=== PATIENT | male | born 1990 | race Caucasian/White ===

== ENCOUNTER → 2016-05-30 | Outpatient (REF) ==
[2016-05-30 21:25] LABS: CRYSTALS, BODY FLUID NONE SEEN (NONE SEEN)
[2016-05-30 21:41] LABS: HCT SOURCE OTHER; SYNOVIAL FLUID COLOR YELLOW (YELLOW); WBC ADVIA BF 7.33; WBC CALC. BF 7330 cells/uL (0-20)
[2016-05-30 21:42] LABS: BF DIFF IF INDICATED? YES (NO); RBC ADVIA BF 0; RBC CALC. BF < 10000 (< 10mm3 cells/uL)
[2016-05-30 22:27] LABS: CC BF DIFF EXAM CYTOCENTRIFUGE
== END ==
LOC: M LAB REF 17:08
DX: Z01.89 Encounter for other specified special examinations (principal)

== ENCOUNTER → 2016-06-01 | Outpatient (CLI) | payer OTHER ==
[~2016-06-01] MED LIST: LIDOCAINE 1% MDV 20ML VIAL As Ordered ONE
[2016-06-01 14:24] LABS: CRYSTALS, BODY FLUID NONE SEEN (NONE SEEN)
[2016-06-01 15:42] LABS: RBC ADVIA BF 0.02; RBC CALC. BF 20000 (< 10mm3 cells/uL); WBC CALC. BF 14000 cells/uL (0-20)
[2016-06-01 15:43] LABS: BF DIFF IF INDICATED? YES (NO); SYNOVIAL FLUID COLOR ORANGE (YELLOW)
[2016-06-01 18:03] LABS: CC BF DIFF EXAM UNSPUN
--- NOTE | 2016-06-01 19:03 | REP ---
ULTRASOUND GUIDED RIGHT POSTERIOR KNEE FLUID DRAINAGE: The procedure was performed under the direct supervision of Dr. Back. The posterior knee fluid collection was localized using ultrasound guidance. The skin was prepped and draped in a sterile fashion. 1% Lidocaine was used as a local anesthetic. Using fluoroscopic guidance a #5 Azeri Skater catheter was inserted using trocar technique. 35 mL of red tinged fluid was with withdrawn and sent to the lab. The patient tolerated the procedure well and there were no immediate complications. After the appropriate amount of monitored convalescence. The patient tolerated the procedure well and there were no immediate complications. After the appropriate amount of monitored convalescence the patient was discharged from the department. Reviewed by SAMANTHA Caldwell 06/04/2016 05:14 PEdited and Signed by Eldon Back MD 06/04/2016 05:33 P
[2016-06-01 21:07] LABS: HCT SOURCE RT KNEE
== END ==
LOC: M RADPRO 12:31
DX: M25.461 Effusion, right knee (principal); M25.561 Pain in right knee; F17.200 Nicotine dependence, unspecified, uncomplicated

== ENCOUNTER 2016-06-04 19:10 | Emergency (ER) | payer OTHER ==
[2016-06-04] MEDS ORDERED: NORCO 5/325MG TABLET (BULK) As Ordered ONE (20:17)
--- NOTE | 2016-06-04 20:29 | EDDOCDS ---
Nurse's Notes [facility] Name: Audi Vaz Age: 25 yrs Sex: Male : 1990 Arrival Date: 06/04/2016 Time: 19:10 Bed TR7 Private MD: NEJUANA KIMBROUGH Diagnosis: Effusion, right knee Presentation: 06/04 19:22 Presenting complaint: Patient states: that approx 1 week ago his R calf and ankle ms18 started swelling. Pt states that he was seen at [place], referred to Ortho at [place] and then sent to [facility] to have fluid removed from his knee. Pt states that the swelling has gotten worse. The patients lower extremity has obvious swelling present on examination. Adult Sepsis Screening: The patient does not have new or worsening altered mentation. Patient's respiratory rate is less than 22. Systolic blood pressure is greater than 100. Patient has a qSOFA score of 0- Negative Sepsis Screen. Suicide/Homicide risk assessment- the patient denies having any suicidal and/or homicidal ideations and does not present with any other emotional, behavioral or mental health complaints. 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 Transition of care: patient was not received from another setting of care. 19:22 Acuity: SARY Level 3 ms18 19:22 Method Of Arrival: Walkin/Carried/Asstd ms18 Triage Assessment: 19:26 General: Appears in no apparent distress, comfortable, Behavior is appropriate for age, ms18 cooperative. Pain: Location: right ankle and right calf Pain currently is 8 out of 10 on a pain scale. HIV screening NA for this visit Offered previously. Neurological: Level of Consciousness is awake, alert, obeys commands, Oriented to person, place, time. Respiratory: No deficits noted. Derm: Skin is pink, warm & dry. Musculoskeletal: Capillary refill < 3 seconds No deformity noted Reports pain in right ankle and right calf. Historical: - Allergies: no known allergies; - Home Meds: 1. none - PMHx: none; - PSHx: none; - Social history: Smoking status: Patient uses tobacco products, current every day smoker. No barriers to communication noted, The patient speaks fluent Yakut. - Family history: Not pertinent. - : The pt / caregiver states he / she is not on anticoagulants. Home medication list is obtained from the patient. - Exposure Risk Screening:: None identified. Screenin:26 Screening information is obtained from the patient. Fall risk: No risks identified. pml Assistance ADL's: requires no assistance with activities of daily living. Abuse/DV Screen: The patient / caregiver reports he/she is: not in a situation that causes fear, pain or injury. Nutritional screening: No deficits noted. Advance Directives: Currently, there is no health care proxy. home support is adequate. Assessment: 20:26 General: Appears in no apparent distress, Behavior is appropriate for age, cooperative. pml Pain: Location: right ankle Pain currently is 8 out of 10 on a pain scale. Neurological: Level of Consciousness is awake, alert, Oriented to person, place, time. Cardiovascular: Capillary refill < 3 seconds. Respiratory: Airway is patent Respiratory effort is even, unlabored. GI: Abdomen is flat, non- distended. Derm: Skin is pink, warm & dry. Swollen area noted on right calf and right ankle. Musculoskeletal: Circulation, motion, and sensation intact Capillary refill < 3 seconds Signs and Symptoms of Compartment Syndrome: no signs of compartment syndrome. Vital Signs: 19:12 BP 151 / 91; Pulse 93; Resp 18 S; Temp 97.2(O); Pulse Ox 97% on R/A; Weight 72.57 kg dd6 (R); Height 5 ft. 8 in. (172.72 cm) (R); 19:12 Body Mass Index 24.33 (72.57 kg, 172.72 cm) dd6 Vitals: 19:12 Log In Time: June 04, 2016 at 19:00. dd6 ED Course: 19:11 Patient visited by Devyn Ramsey PCA. dd6 19:11 [facility]. dd6 19:11 Patient moved to Waiting dd6 19:12 Patient moved to Pre RCE dd6 19:26 Triage Initiated ms18 20:01 Patient moved to Triage 3 jmb 20:02 Basilio Foley PA is PHCP. mo1 20:02 Luc Samuels DO is Attending Physician. mo1 20:15 Patient visited by Basilio Foley PA. mo1 20:23 Chang Douglass is Referral Physician. mo1 20:26 Patient moved to TR7 jmb 20:26 The patient / caregiver is instructed regarding the plan of care and ED course. Patient pml has correct armband on for positive identification. Bed in low position. Call light in reach. 20:26 No IV's were initiated during this patient's visit. No procedures done that require pml assistance. Administered Medications: 20:26 Drug: HYDROcodone-acetaminophen 4 pack- 1 packets [hydrocodone 5 mg-acetaminophen 325 pml mg tablet (1 tabs)] {Co-Signature: raegan (Devan Bain RN).} Route: PO; 20:28 Follow up: Response: Med's dispensed home pml Order Results: There are currently no results for this order. Outcome: 20:23 Discharge ordered by Provider. mo1 20:26 Discharge Assessment: Patient awake, alert and oriented x 3. No cognitive and/or pml functional deficits noted. Patient verbalized understanding of disposition instructions. patient administered narcotics - no. The following High Risk Discharge criteria are identified: None. Discharged to home ambulatory, with significant other. Condition: good Condition: stable. Discharge instructions given to patient, Instructed on discharge instructions, follow up and referral plans. medication usage, no driving heavy equipment, Demonstrated understanding of instructions, medications, Pt was receptive of discharge instructions/ teaching. Prescriptions given X 1. No special radiology studies were completed. Property sent home with patient. 20:28 Patient left the ED. pml Signatures: Devyn Ramsey, NAIL FEEDER NAIL FEEDER dd6 Jennifer Fitzpatrick RN RN pml Basilio Foley PA PA mo1 Devan Bain RN RN Nereyda Reeves RN RN ms18 Devan carlin MTDD
--- NOTE | 2016-06-04 20:29 | EDDOCDS ---
Physician Documentation [facility] Name: Audi Vaz Age: 25 yrs Sex: Male : 1990 Arrival Date: 06/04/2016 Time: 19:10 Bed TR7 Private MD: NDJUANA KIMBROUGH Disposition: 06/04/16 20:23 Discharged to Home/Self Care. Impression: Effusion, right knee. - Condition is Stable. - Discharge Instructions: Knee Effusion, Knee Arthrocentesis. - Prescriptions for [place] 5- 325 mg Oral Tablet - take 1 tablet by ORAL route every 6 hours As needed MDD: 4 tabs; 20 tablet. - Medication Reconciliation, Local Pharmacy Hours form. - Follow up: Chang Douglass; When: Call to arrange an appointment; Reason: Recheck today's complaints, Continuance of care. - Problem is new. - Symptoms are unchanged. Historical: - Allergies: no known allergies; - Home Meds: 1. none - PMHx: none; - PSHx: none; - Social history: Smoking status: Patient uses tobacco products, current every day smoker. No barriers to communication noted, The patient speaks fluent Polish. - Family history: Not pertinent. - : The pt / caregiver states he / she is not on anticoagulants. Home medication list is obtained from the patient. - Exposure Risk Screening:: None identified. Vital Signs: 06/04 19:12 BP 151 / 91; Pulse 93; Resp 18 S; Temp 97.2(O); Pulse Ox 97% on R/A; Weight 72.57 kg / dd6 159.99 lbs (R); Height 5 ft. 8 in. (172.72 cm) (R); 19:12 Body Mass Index 24.33 (72.57 kg, 172.72 cm) dd6 MDM: 20:15 HYDROcodone-acetaminophen 4 pack- 5 mg-325 mg 1 packets PO Per package directions; mo1 Dispense with patient. 1 po q4h prn for pain ordered. Administered Medications: 20:26 Drug: HYDROcodone-acetaminophen 4 pack- 1 packets [hydrocodone 5 mg-acetaminophen 325 pml mg tablet (1 tabs)] {Co-Signature: raegan (Devan Bain RN).} Route: PO; 20:28 Follow up: Response: Med's dispensed home pml Signatures: Jennifer Fitzpatrick,RN RN pml Basilio Foley PA PA mo1 Nereyda Adame RN RN ms18 Devan Bain RN jmb MTDD
--- NOTE | 2016-06-06 21:30 | EDDOCDS ---
Physician Documentation [facility] Name: Audi Vaz Age: 25 yrs Sex: Male : 1990 Arrival Date: 06/04/2016 Time: 19:10 Bed TR7 Private MD: NCJUANA KIMBROUGH Disposition: 06/04/16 20:23 Discharged to Home/Self Care. Impression: Effusion, right knee. - Condition is Stable. - Discharge Instructions: Knee Effusion, Knee Arthrocentesis. - Prescriptions for [place] 5- 325 mg Oral Tablet - take 1 tablet by ORAL route every 6 hours As needed MDD: 4 tabs; 20 tablet. - Medication Reconciliation, Local Pharmacy Hours form. - Follow up: Chang Douglass; When: Call to arrange an appointment; Reason: Recheck today's complaints, Continuance of care. - Problem is new. - Symptoms are unchanged. Historical: - Allergies: no known allergies; - Home Meds: 1. none - PMHx: none; - PSHx: none; - Social history: Smoking status: Patient uses tobacco products, current every day smoker. No barriers to communication noted, The patient speaks fluent Ecuadorean. - Family history: Not pertinent. - : The pt / caregiver states he / she is not on anticoagulants. Home medication list is obtained from the patient. - Exposure Risk Screening:: None identified. Vital Signs: 06/04 19:12 BP 151 / 91; Pulse 93; Resp 18 S; Temp 97.2(O); Pulse Ox 97% on R/A; Weight 72.57 kg / dd6 159.99 lbs (R); Height 5 ft. 8 in. (172.72 cm) (R); 19:12 Body Mass Index 24.33 (72.57 kg, 172.72 cm) dd6 MDM: 20:15 HYDROcodone-acetaminophen 4 pack- 5 mg-325 mg 1 packets PO Per package directions; mo1 Dispense with patient. 1 po q4h prn for pain ordered. 22:14 [facility] Payment Agreement was scanned into [employer] and attached to record. [facility] 22:14 Financial registration complete. b 06/05 11:49 T-Sheet-- Draft Copy was scanned into [employer] and attached to record. gb Administered Medications: 06/04 20:26 Drug: HYDROcodone-acetaminophen 4 pack- 1 packets [hydrocodone 5 mg-acetaminophen 325 pml mg tablet (1 tabs)] {Co-Signature: raegan (Devan Bain RN).} Route: PO; 20:28 Follow up: Response: Med's dispensed home pml Signatures: Patti Teran, Jadon Reg gb Jennifer Fitzpatrick RN RN pml Basilio Foley PA PA mo1 Nereyda Adame RN RN ms18 Bernarda Wong RN The chart was reviewed and I authenticate all verbal orders and agree with the evaluation and treatment provided.Attachments: 22:14 [facility] Payment Agreement gjb 06/05 11:49 T-Sheet-- Draft Copy gb Chart Complete MTDD
--- NOTE | 2016-06-06 21:30 | EDDOCDS ---
Physician Documentation [facility] Name: Audi Vaz Age: 25 yrs Sex: Male : 1990 Arrival Date: 06/04/2016 Time: 19:10 Bed TR7 Private MD: NMJUANA KIMBROUGH Disposition: 06/04/16 20:23 Discharged to Home/Self Care. Impression: Effusion, right knee. - Condition is Stable. - Discharge Instructions: Knee Effusion, Knee Arthrocentesis. - Prescriptions for [place] 5- 325 mg Oral Tablet - take 1 tablet by ORAL route every 6 hours As needed MDD: 4 tabs; 20 tablet. - Medication Reconciliation, Local Pharmacy Hours form. - Follow up: Chang Douglass; When: Call to arrange an appointment; Reason: Recheck today's complaints, Continuance of care. - Problem is new. - Symptoms are unchanged. Historical: - Allergies: no known allergies; - Home Meds: 1. none - PMHx: none; - PSHx: none; - Social history: Smoking status: Patient uses tobacco products, current every day smoker. No barriers to communication noted, The patient speaks fluent Belizean. - Family history: Not pertinent. - : The pt / caregiver states he / she is not on anticoagulants. Home medication list is obtained from the patient. - Exposure Risk Screening:: None identified. Vital Signs: 06/04 19:12 BP 151 / 91; Pulse 93; Resp 18 S; Temp 97.2(O); Pulse Ox 97% on R/A; Weight 72.57 kg / dd6 159.99 lbs (R); Height 5 ft. 8 in. (172.72 cm) (R); 19:12 Body Mass Index 24.33 (72.57 kg, 172.72 cm) dd6 MDM: 20:15 HYDROcodone-acetaminophen 4 pack- 5 mg-325 mg 1 packets PO Per package directions; mo1 Dispense with patient. 1 po q4h prn for pain ordered. 22:14 [facility] Payment Agreement was scanned into [employer] and attached to record. [facility] 22:14 Financial registration complete. b 06/05 11:49 T-Sheet-- Draft Copy was scanned into [employer] and attached to record. gb Administered Medications: 06/04 20:26 Drug: HYDROcodone-acetaminophen 4 pack- 1 packets [hydrocodone 5 mg-acetaminophen 325 pml mg tablet (1 tabs)] {Co-Signature: raegan (Devan Bain RN).} Route: PO; 20:28 Follow up: Response: Med's dispensed home pml Signatures: Patti Teran, Jadon Reg gb Jennifer Fitzpatrick RN RN pml Basilio Foley PA PA mo1 Nereyda Adame RN RN ms18 Bernarda Wong RN The chart was reviewed and I authenticate all verbal orders and agree with the evaluation and treatment provided.Attachments: 22:14 [facility] Payment Agreement gjb 06/05 11:49 T-Sheet-- Draft Copy gb Chart Complete MTDD
--- NOTE | 2016-06-06 21:30 | EDDOCDS ---
Nurse's Notes [facility] Name: Audi Vaz Age: 25 yrs Sex: Male : 1990 Arrival Date: 06/04/2016 Time: 19:10 Bed TR7 Private MD: ORJUANA KIMBROUGH Diagnosis: Effusion, right knee Presentation: 06/04 19:22 Presenting complaint: Patient states: that approx 1 week ago his R calf and ankle ms18 started swelling. Pt states that he was seen at [place], referred to Ortho at [place] and then sent to [facility] to have fluid removed from his knee. Pt states that the swelling has gotten worse. The patients lower extremity has obvious swelling present on examination. Adult Sepsis Screening: The patient does not have new or worsening altered mentation. Patient's respiratory rate is less than 22. Systolic blood pressure is greater than 100. Patient has a qSOFA score of 0- Negative Sepsis Screen. Suicide/Homicide risk assessment- the patient denies having any suicidal and/or homicidal ideations and does not present with any other emotional, behavioral or mental health complaints. 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 Transition of care: patient was not received from another setting of care. 19:22 Acuity: SARY Level 3 ms18 19:22 Method Of Arrival: Walkin/Carried/Asstd ms18 Triage Assessment: 19:26 General: Appears in no apparent distress, comfortable, Behavior is appropriate for age, ms18 cooperative. Pain: Location: right ankle and right calf Pain currently is 8 out of 10 on a pain scale. HIV screening NA for this visit Offered previously. Neurological: Level of Consciousness is awake, alert, obeys commands, Oriented to person, place, time. Respiratory: No deficits noted. Derm: Skin is pink, warm & dry. Musculoskeletal: Capillary refill < 3 seconds No deformity noted Reports pain in right ankle and right calf. Historical: - Allergies: no known allergies; - Home Meds: 1. none - PMHx: none; - PSHx: none; - Social history: Smoking status: Patient uses tobacco products, current every day smoker. No barriers to communication noted, The patient speaks fluent Spanish. - Family history: Not pertinent. - : The pt / caregiver states he / she is not on anticoagulants. Home medication list is obtained from the patient. - Exposure Risk Screening:: None identified. Screenin:26 Screening information is obtained from the patient. Fall risk: No risks identified. pml Assistance ADL's: requires no assistance with activities of daily living. Abuse/DV Screen: The patient / caregiver reports he/she is: not in a situation that causes fear, pain or injury. Nutritional screening: No deficits noted. Advance Directives: Currently, there is no health care proxy. home support is adequate. Assessment: 20:26 General: Appears in no apparent distress, Behavior is appropriate for age, cooperative. pml Pain: Location: right ankle Pain currently is 8 out of 10 on a pain scale. Neurological: Level of Consciousness is awake, alert, Oriented to person, place, time. Cardiovascular: Capillary refill < 3 seconds. Respiratory: Airway is patent Respiratory effort is even, unlabored. GI: Abdomen is flat, non- distended. Derm: Skin is pink, warm & dry. Swollen area noted on right calf and right ankle. Musculoskeletal: Circulation, motion, and sensation intact Capillary refill < 3 seconds Signs and Symptoms of Compartment Syndrome: no signs of compartment syndrome. Vital Signs: 19:12 BP 151 / 91; Pulse 93; Resp 18 S; Temp 97.2(O); Pulse Ox 97% on R/A; Weight 72.57 kg dd6 (R); Height 5 ft. 8 in. (172.72 cm) (R); 19:12 Body Mass Index 24.33 (72.57 kg, 172.72 cm) dd6 Vitals: 19:12 Log In Time: June 04, 2016 at 19:00. dd6 ED Course: 19:11 Patient visited by Devyn Ramsey PCA. dd6 19:11 [facility]. dd6 19:11 Patient moved to Waiting dd6 19:12 Patient moved to Pre RCE dd6 19:26 Triage Initiated ms18 20:01 Patient moved to Triage 3 jmb 20:02 Basilio Foley PA is PHCP. mo1 20:02 Luc Samuels DO is Attending Physician. mo1 20:15 Patient visited by Basilio Foley PA. mo1 20:23 Chang Douglass is Referral Physician. mo1 20:26 Patient moved to TR7 jmb 20:26 The patient / caregiver is instructed regarding the plan of care and ED course. Patient pml has correct armband on for positive identification. Bed in low position. Call light in reach. 20:26 No IV's were initiated during this patient's visit. No procedures done that require pml assistance. 22:14 [facility] Payment Agreement was scanned into [employer] and attached to record. gjb 23:25 Patient name changed from Audi\S\M\S\Milind\S\ to Audi\S\ \S\Milind. EDMS 06/05 11:49 T-Sheet-- Draft Copy was scanned into [employer] and attached to record. gb Administered Medications: 06/04 20:26 Drug: HYDROcodone-acetaminophen 4 pack- 1 packets [hydrocodone 5 mg-acetaminophen 325 pml mg tablet (1 tabs)] {Co-Signature: raegan (Devan Bain RN).} Route: PO; 20:28 Follow up: Response: Med's dispensed home pml Order Results: There are currently no results for this order. Outcome: :23 Discharge ordered by Provider. mo1 20:26 Discharge Assessment: Patient awake, alert and oriented x 3. No cognitive and/or pml functional deficits noted. Patient verbalized understanding of disposition instructions. patient administered narcotics - no. The following High Risk Discharge criteria are identified: None. Discharged to home ambulatory, with significant other. Condition: good Condition: stable. Discharge instructions given to patient, Instructed on discharge instructions, follow up and referral plans. medication usage, no driving heavy equipment, Demonstrated understanding of instructions, medications, Pt was receptive of discharge instructions/ teaching. Prescriptions given X 1. No special radiology studies were completed. Property sent home with patient. 20:28 Patient left the ED. pml Signatures: Dispatcher [employer] EDMS Patti Teran, Reg Reg gb Devyn Ramsey, DIRECTOR RADIO NEWS DIRECTOR RADIO NEWS dd6 Jennifer Fitzpatrick RN RN pml Basilio Foley PA PA mo1 Devan Bain RN RN jmb Smith, Mallory, RN RN ms18 Bernarda Wongb Devan carlin Chart Complete MTDD
== END 2016-06-04 20:28 | disposition home or self-care (01) ==
LOC: M ED 19:10
DX: M25.461 Effusion, right knee (principal); F17.200 Nicotine dependence, unspecified, uncomplicated

== ENCOUNTER → 2016-09-17 | Outpatient (CLI) | payer OTHER ==
[~2016-09-17] MED LIST changes: +LIDOCAINE 2% MDV 20 ML VIAL As Ordered ONE
--- NOTE | 2016-09-18 08:12 | REP ---
ULTRASOUND GUIDED RIGHT POSTERIOR KNEE FLUID DRAINAGE: The procedure was performed under the direct supervision of Dr. Obrien. The risks and benefits of the procedure were explained to the patient and informed consent was obtained. The right posterior knee fluid was localized using ultrasound guidance. The skin was prepped and draped in a sterile fashion. 1% Xylocaine was used as a local anesthetic. Using ultrasound guidance, a #5-Maori Skater centesis catheter was inserted using trocar technique. 65 mL of low viscosity red colored fluid was withdrawn and sent to the lab. The patient tolerated the procedure well and there were no immediate complications. After the appropriate amount of monitored convalescence, the patient was discharged from the department. Reviewed by SAMANTHA Caldwell 09/19/2016 03:27 PEdited and Signed by Terrance Obrien MD 09/19/2016 04:49 P
== END ==
LOC: M IRPRO 13:56 → M RADPRO 13:56
DX: M25.461 Effusion, right knee (principal); Z72.0 Tobacco use